=== PATIENT | female | born 1975 ===

== ENCOUNTER 2019-05-16 13:52 | Outpatient (CLI) | payer OTHER ==
--- NOTE | 2019-05-16 14:47 | MMO ---
Bilateral MAMMO Bilat Diag [facility]. CLINICAL HISTORY: Patient is 43 years old and is seen for diagnostic exam,palpable abnormality and pain in the right breast. The patient has no family history of breast cancer. The patient has no personal history of cancer. VIEWS: The views performed were: bilateral craniocaudal with tomosynthesis; bilateral mediolateral oblique with tomosynthesis; and bilateral mediolateral with tomosynthesis. FILMS COMPARED: The present examination has been compared to a prior imaging study performed at [facility] on 05/16/2019. MAMMOGRAM FINDINGS: There are scattered fibroglandular densities. There are no suspicious masses, suspicious calcifications, or new areas of architectural distortion. IMPRESSION: THERE IS NO MAMMOGRAPHIC EVIDENCE OF MALIGNANCY. ULTRASOUND THE PALPABLE FINDINGS. NORMAL. A ROUTINE FOLLOW-UP MAMMOGRAM IN 1 YEAR IS RECOMMENDED. THE RESULTS OF THIS EXAM WERE SENT TO THE PATIENT. ACR BI-RADS Category 2 - Benign finding MAMMOGRAPHY NOTE: 1. A negative mammogram report should not delay a biopsy if a dominant of clinically suspicious mass is present. 2. Approximately 10% to 15% of breast cancers are not detected by mammography. 3. Adenosis and dense breasts may obscure an underlying neoplasm. Reported by: ALEXANDRE MCCLENDON MD Electonically Signed: [id number]
--- NOTE | 2019-05-16 16:53 | ULT ---
RIGHT BREAST ULTRASOUND: 05/16/19 HISTORY: Patient presents with two palpable abnormalities in the right breast. One at 9 o'clock and one at 11 o'clock. No solid or cystic mass or other abnormal ultrasound finding to account for the palpable findings. Th e diagnostic mammogram showed no associated abnormalities as well. IMPRESSION: BIRADS 2: Benign Finding(s) Routine annual screening mammography (for women over age 40). No abnormal ultrasound correlate to two palpable findings in the right breast, one at 9 o'clock and o ne at 11 o'clock. POS: OFF
== END 2019-05-16 13:53 | disposition home or self-care (01) ==
LOC: BICMAMMO 13:52
PROVIDERS: ATTEND Family Medicine
DX: N63.11 Unspecified lump in the right breast, upper outer quadrant (principal)
CPT/HCPCS: 77066; G0279